=== PATIENT | female | born 2000 | race African-American/Black ===

== ENCOUNTER 2020-12-28 15:00 | Emergency (ER) | payer MEDICAID ==
[~2020-12-28] VITALS: Ht 160 cm; Wt 79.5 kg
[2020-12-28 15:20] VITALS: BP 115/79; Ht 160 cm; Wt 79.5 kg
[2020-12-28 17:34] LABS: HCG URINE NEGATIVE (NEGATIVE)
[2020-12-28 17:37] LABS: BILIRUBIN NEGATIVE (NEGATIVE); KETONE NEGATIVE (NEGATIVE); NITRITE NEGATIVE (NEGATIVE); UROBILINOGEN NORMAL mg/dL (< 2)
[2020-12-28 17:40] LABS: SQUAMOUS EPITHELIAL 0-5 HPF (0-4); WHITE CELLS - URINE 0-5 HPF (0-4)
[2020-12-28] MEDS ORDERED: CEPHALEXIN500 M1 PO (17:48)
[2020-12-28] MEDS ORDERED: MACROBID100 MG PO (17:48)
== END 2020-12-28 18:19 | disposition home or self-care (01) ==
LOC: D.ER 15:00
PROVIDERS: Emergency Medicine
DX: N39.0 Urinary tract infection, site not specified (principal); R51.9 Headache, unspecified; J02.9 Acute pharyngitis, unspecified; R10.30 Lower abdominal pain, unspecified; R50.9 Fever, unspecified